=== PATIENT | female | born 1985 | race Two or more races ===

== ENCOUNTER 2025-03-17 23:57 | Emergency (ER) | payer MEDICAID, OTHER ==
[~2025-03-17] VITALS: Ht 175.3 cm; Wt 109.0 kg
[2025-03-17 23:57] VITALS: BP 117/69; RESP 14; TEMP 99.1; O2SAT 96
[2025-03-18 00:04] VITALS: PULSE 97
[2025-03-18] MEDS: ONDANSETRON ODT 4 MG TAB PO ONE (00:15)
[2025-03-18] MEDS: DONNATAL 5ml ORAL Elix (BELLADONNA ALK-PHENOBARB) PO ONE (00:15)
[2025-03-18] MEDS: MAALOX PLUS or MAALOX 30 ML PO ONE (00:15)
[2025-03-18] MEDS: HYDROcodone-ACET 5/325MG TAB PO ONE (00:15)
[2025-03-18] MEDS: LIDOCAINE VISCOUS 2% 15ML UD PO ONE (00:15)
[2025-03-18 00:37] LABS: Hematocrit 35.0 % (36.0-46.0); Hemoglobin 11.0 g/dL (12.2-16.2); Mean Corpuscular Hemoglobin 22.7 pg (28.0-32.0); Mean Corpuscular Volume 72.6 fL (80.0-100.0); Nucleated Red Blood Cells % 0.0 %
[2025-03-18 00:46] LABS: Alanine Aminotransferase 20 U/L (7-40); Albumin 4.4 g/dL (3.2-4.8); Alkaline Phosphatase 72 U/L (46-116); Anion Gap 9 (5-15); BUN/Creatinine Ratio 18.7 (10.0-20.0); Blood Urea Nitrogen 14 mg/dL (9-23); Calcium 9.4 mg/dL (8.7-10.4); Carbon Dioxide 25 mmol/L (20-31); Lipase 42 U/L (12-53); Potassium 3.9 mmol/L (3.5-5.1); Sodium 143 mmol/L (136-145); Total Protein 7.1 g/dL (5.7-8.2)
[2025-03-18 00:49] LABS: Bilirubin, Total 0.2 mg/dL (0.2-1.0); Chloride 109 mmol/L (98-107); Glucose 107 mg/dL (74-106)
[2025-03-18] MEDS ORDERED: ZOFR4T PO (02:14)
[2025-03-18] MEDS ORDERED: DICY10CA PO (02:14)
[2025-03-18] MEDS ORDERED: ACET-1304 PO (02:14)
[2025-03-18] MEDS ORDERED: OMEP-434 PO (02:14)
--- NOTE | 2025-03-18 02:14 | ED.PDOC ---
History of Present Illness HPI Comments 40-year-old female with no significant past medical history brought in by family complaining of epigastric pain for the last 3 days. Patient states the pain feels like soreness, is worse after eating, and is associated with nausea and vomiting. She states the pain is also worse when she has been lying down for a long time, and when she takes a deep breath it causes more pain in the same area. She denies any dyspnea on exertion, fever, cough, diarrhea, constipation, dysuria or edema. Chief Complaint: Epigastric pain Time Seen by MD: 00:00 Reviewed Notes: Nurses Notes Home Meds Active Scripts Acetaminophen (Tylenol Extra Strength) 500 Mg Tab, 1000 MG PO Q6HP PRN, #30 TAB Prn pain. 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 Moist mucous membranes.) Neck: Full Range of Motion, Normal Inspection Respiratory: Chest Non-Tender, Lungs Clear, No Accessory Muscle Use, No Respiratory Distress, Normal Breath Sounds Cardiovascular: No Edema, No JVD, Regular Rate/Rhythm Breast Exam: Deferred Gastrointestinal: Epigastric, Soft, Tenderness (I am putting in a now) Genitalia: Deferred (Busy 8) Pelvic: Deferred Rectal: Deferred Extremities: Normal inspection, Normal range of motion, Non-tender, No pedal edema Neurologic: Alert (Oriented x4), Normal Affect, Normal Mood, Other (Ambulatory) Cerebellar Function: NOT DONE Reflexes: NOT DONE Skin: Dry, Normal Color, Warm Lymphatic: NOT DONE Was a procedure done? Was a procedure done?: No EKG EKG : Comments Sinus rhythm, rate 97, normal HI and QRS intervals, QTC 536, normal axis, normal QRS, occasional PACs, nonspecific T changes. Differential Dx Considerations may include: Gastritis, esophagitis, acid reflux, pancreatitis, ACS, [place], among others X-Ray, Labs, Meds, VS Vital Signs Date Time Temp Pulse Resp B/P (MAP) Pulse Ox O2 Delivery O2 Flow Rate FiO2 03/18/25 00:04 97 03/17/25 23:57 99.1 100 14 117/69 (85) 96 99.1 Lab Test 03/18/25 01:07 03/18/25 00:18 Range/Units Troponin I High Sensitivity < 3 L < 3 L </=34 ng/L White Blood Count 10.8 4.4-10.8 10^3/uL Red Blood Count 4.83 4.0-5.20 10^6/uL Hemoglobin 11.0 L 12.2-16.2 g/dL Hematocrit 35.0 L 36.0-46.0 % Mean Corpuscular Volume 72.6 L 80.0-100.0 fL Mean Corpuscular Hemoglobin 22.7 L 28.0-32.0 pg Mean Corpuscular Hemoglobin Concent 31.3 L 32.0-36.0 g/dL Red Cell Distribution Width 18.5 H 11.8-14.3 % Platelet Count 327 140-450 10^3/uL Mean Platelet Volume 9.0 6.9-10.8 fL Neutrophils (%) (Auto) 58.1 37.0-80.0 % Lymphocytes (%) (Auto) 30.9 10.0-50.0 % Monocytes (%) (Auto) 8.9 0.0-12.0 % Eosinophils (%) (Auto) 1.2 0.0-7.0 % Basophils (%) (Auto) 0.9 0.0-2.0 % Neutrophils # (Auto) 6.3 1.6-8.6 10 ^3/uL Lymphocytes # (Auto) 3.3 0.4-5.4 10 ^3/uL Monocytes # (Auto) 1.0 0-1.3 10 ^3/uL Eosinophils # (Auto) 0.1 0-0.8 10 ^3/uL Basophils # (Auto) 0.1 0-0.2 10 ^3/uL Nucleated Red Blood Cells 0.0 % Sodium Level 143 136-145 mmol/L Potassium Level 3.9 3.5-5.1 mmol/L Chloride Level 109 H 98-107 mmol/L Carbon Dioxide Level 25 20-31 mmol/L Anion Gap 9 5-15 Blood Urea Nitrogen 14 9-23 mg/dL Creatinine 0.75 0.550-1.02 mg/dL Glomerular Filtration Rate Calc 103 >90 mL/min BUN/Creatinine Ratio 18.7 10.0-20.0 Serum Glucose 107 H 74-106 mg/dL Calcium Level 9.4 8.7-10.4 mg/dL Total Bilirubin 0.2 0.2-1.0 mg/dL Aspartate Amino Transferase (AST) 23 13-40 U/L Alanine Aminotransferase (ALT) 20 7-40 U/L Alkaline Phosphatase 72 46-116 U/L B-Type Natriuretic Peptide 13.62 0-100 pg/mL Total Protein 7.1 5.7-8.2 g/dL Albumin 4.4 3.2-4.8 g/dL Lipase 42 12-53 U/L PROCEDURE(s): CXRP - CHEST PORTABLE REASON: epig pain ORDER NUMBER(s): [id number], ACCESSION NUMBER(s): [id number] CHEST RADIOGRAPH Indication: epig pain Technique: Single frontal view of the chest was obtained COMPARISON: None FINDINGS: Lines and Tubes: None Lungs: Clear Pleura: No effusion. No pneumothorax. Cardiomediastinal contours: Unremarkable Bones: Unremarkable IMPRESSION: 1. No acute disease. X-Ray, Labs, Meds, VS Comment 40-year-old female with no significant past medical history complaining of epigastric pain Vitals unremarkable Exam remarkable for epigastric tenderness Rhythm strip independently interpreted by me: Sinus rhythm, rate 97, no ectopy. Chest x-ray one view independently interpreted by me: Cardiac silhouette upper limit normal, no infiltrate or effusion, normal mediastinal width, grossly n ormal bony thorax, no free air, no pneumothorax CBC, CMP, lipase, BNP and 2 serial troponins unremarkable for any abnormality of acute significance Patient treated with the following in the ED: Viscous lidocaine 10 mL/ 10 mL/Maalox 30 mL p.o., Zofran ODT 4 mg p.o., Maria Stein 5/325 mg p.o. Re-evaluation, patient states pain has improved. Vitals were stable. Hospitalization was considered, however patient had rapid improvement of symptoms with treatment in the ED, workup is essentially unremarkable, and heart score is 2. I no longer feel hospitalization is necessary. Patient now appears stable for discharge with close outpatient follow-up with her primary physician. Rx omeprazole, Zofran, Tylenol, Bentyl Time of 1ST Reevaluation: 02:09 Reevaluation 1ST: Improved Patient Education/Counseling: Diagnosis, Treatment, Need For Follow Up Family Education/Counseling: No Family Present SEPSIS Sepsis Screen Date sepsis recognized/suspect: Mar 18, 2025 Time Sepsis recognized/suspect: 2356 Recent Procedure: No On Antibiotic Therapy: No Respiratory Rate >20: No Heart Rate >90: No Temp<36 C (96.8 F) or >38.3 C: No SBP <90 or MAP <65 mmHG: No New Acute Mental Status Change: No Is the patient on CPAP, BIPAP,: No Physician Orders Chest Portable (03/18/25 00:11) Urinalysis (03/18/25 00:11) Electrocardigram (03/18/25 00:11) Vital Signs Date Time Temp Pulse Resp B/P (MAP) Pulse Ox O2 Delivery O2 Flow Rate FiO2 03/18/25 00:04 97 03/17/25 23:57 99.1 100 14 117/69 (85) 96 99.1 Laboratory Tests Test 03/18/25 00:18 White Blood Count 10.8 10^3/uL (4.4-10.8) Departure 1 Departure Time of Disposition: 02:09 Impression: Primary Impression: Epigastric pain Disposition: 01 HOME / SELF CARE / HOMELESS Condition: Stable Additional Instructions: Your blood tests, including screening test for heart attack and heart failure, were unremarkable. Your EKG was unremarkable. Your chest x-ray was normal. Your symptoms may be due to acid reflux or inflammation of your stomach. I have prescribed medications to treat your symptoms. Follow-up with your primary doctor in 1-2 days. Return to ER for persistent or worsening symptoms. e-Prescriptions Acetaminophen (Tylenol Extra Strength) 500 Mg Tab 1000 MG PO Q6HP PRN, #30 TAB Prn pain. Prov: THELMA TIAN MD 03/18/25 Dicyclomine Hcl (BENTYL CAPSULE) 10 Mg Cp 2 CAP PO Q6HPRN PRN, #30 CAP 3 Refills Prn pain Prov: THELMA TIAN MD 03/18/25 Ondansetron Odt 4MG Tab (ZOFRAN PO) 4 Mg Tb 4 MG PO TID PRN, #20 TAB Prn nausea/vomiting ODT TAB-DISSOLVE IN MOUTH, THEN SWALLOW Prov: THELMA TIAN MD 03/18/25 Omeprazole Magnesium (Omeprazole) 20 Mg Tab 20 MG PO DAILY, #30 TAB Prov: THELMA TIAN MD 03/18/25 Discharged With: Relative Critical Care Note Critical Care Time?: No Stability Stability form required: No Heart Score Heart Score: Heart Score Response (Comments) Value History Slightly Suspicious 0 EKG Repolarization Disturb 1 Age <45 0 Risk Factors 1 or 2 risk factors 1 Troponin Normal limit 0 Total 2 THELMA TIAN MD Mar 18, 2025 02:14
--- NOTE | 2025-03-18 02:24 | DVH ---
CHEST RADIOGRAPH Indication: epig pain Technique: Single frontal view of the chest was obtained COMPARISON: None FINDINGS: Lines and Tubes: None Lungs: Clear Pleura: No effusion. No pneumothorax. Cardiomediastinal contours: Unremarkable Bones: Unremarkable IMPRESSION: 1. No acute disease.
--- NOTE | 2025-03-18 07:21 | ECG ---
[facility] Test Date: 2025-03-18 Test Time: 00:04:56 Pat Name: GARLAND MARTINEZ Department: ED Room: Gender: F Client Care Manager: NANCY : 1985 Requested By: THELMA VILLAR Order Number: [id number] Reading MD: Anshul Vaughan Measurements Intervals [place] Rate: 97 P: 42 MO: 143 QRS: 53 QRSD: 67 T: -5 QT: 422 QTc: 536 Interpretive Statements Sinus tachycardia Atrial premature complexes Low voltage, precordial leads Borderline T abnormalities, diffuse leads Prolonged QT interval Electronically Signed On 03-18-2025 19:08:16 PDT by Anshul Vaughan Please click the below link to view image of tracing.
== END 2025-03-18 05:23 | disposition home or self-care (01) ==
LOC: ER 23:57
DX: R10.13 Epigastric pain (principal); F10.90 Alcohol use, unspecified, uncomplicated; Z98.51 Tubal ligation status; Z79.899 Other long term (current) drug therapy; Z98.890 Other specified postprocedural states; Y90.9 Presence of alcohol in blood, level not specified
CPT/HCPCS: 36415; 71045; 80053; 83690; 83880; 84484; 85025; 93005